=== PATIENT | female | born 1955 | race Caucasian/White ===

== ENCOUNTER 2018-05-31 06:05 | Observation (INO) | payer OTHER ==
--- NOTE | 2018-05-12 12:26 | GHP ---
DATE OF ADMISSION: 05/31/2018 PROBLEM: Right knee arthritis. HISTORY OF PRESENT ILLNESS: The patient is a 63-year-old woman admitted for a right total knee arthr oplasty. She has had progressive pain in her right knee over the last couple of years. She is now h aving daily pain. No prior surgery. She does Pilates and aqua aerobics. She occasionally uses ibup rofen. She has some night pain. She uses ice packs on her knee after exercising. She has been expe riencing episodes of the knee "locking up." She has also noticed a progressive knock-knee deformity in her knees. She has advanced lateral compartment degenerative arthritis of the right knee. She is admitted for a right total knee arthroplasty. PAST MEDICAL HISTORY: Overall, she is in good general health. She has elevated cholesterol, but can not tolerate statins. She takes medication for depression and for difficulty sleeping. No history o f heart disease, stents, DVT, hepatitis, MRSA staph infections, sleep apnea or bleeding problems. CURRENT MEDICATIONS: Lamotrigine 100 mg per day, lorazepam 0.5 mg p.r.n., eszopiclone 2 mg at bedtim e for sleep. DRUG ALLERGIES: Penicillin causes a rash. Metal allergy: None. Latex allergy: None. SOCIAL HISTORY: The patient is . She does not smoke cigarettes or drink alcohol. PHYSICAL EXAMINATION: VITAL SIGNS: Height 5 feet 8-1/2 inches. Weight 150 pounds. BMI 22.5. EYES : The conjunctivae and sclerae are clear. Pupils are round and reactive. MOUTH: Good oral hygiene . No loose teeth. CHEST: Clear. HEART: Regular rhythm. No murmurs. EXTREMITIES: Pertinent fin dings limited to her right knee. When standing, she has significant increased valgus in the right kn ee. She has no effusion. She lacks 5 degrees of full extension and flexes to 125 degrees. Her liga ments are stable. Her valgus deformity cannot be passively corrected to neutral. She has moderate p atellofemoral crepitation with active knee extension. Her legs are very thin. IMPRESSION ON ADMISSION: Right knee advanced lateral compartment degenerative arthritis with valgus deformity. PLAN: She will undergo a right total knee arthroplasty. The surgery has been described to her, incl uding the risks, complications, expectations, and recovery time. The importance of postoperative phy sical therapy has been stressed. I have advised her that a small percentage of people do not get a s atisfactory result with a total knee replacement. All her questions have been answered, and she cons ents to surgery. /[id number]/MODL
--- NOTE | 2018-05-30 19:01 | POSTANESTH ---
Post Anesthetic Evaluation Cardiovascular Status: Normal, Stable Respiratory Status: Normal, Stable Level of Consciousness/Mental Status: Can Participate in Eval, Mildly Sleepy, Arousable Pain Control: Adequate, Prn Tx Ordered Nausea/Vomiting Control: Adequate, Prn Tx Ordered Complications Possibly Related to Anesthesia: None Noted (Can move toes bilaterally, but no pain at this time due to residual spinal block.)
--- NOTE | 2018-05-30 19:04 | PDANEPAE ---
ANE History of Present Illness 63 yo female with OA for R TKA. ANE Past Medical History - Cardiovascular History Hx Hypertension: No Hx Arrhythmias: No Hx Chest Pain: No Hx Coronary Artery / Peripheral Vascular Disease: No Hx CHF / Valvular Disease: No Hx Palpitations: No - Pulmonary History Hx COPD: No Hx Asthma/Reactive Airway Disease: No Hx Recent Upper Respiratory Infection: No Hx Oxygen in Use at Home: No Hx Sleep Apnea: No Sleep Apnea Screening Result - Last Documented: Negative - Neurologic History Hx Cerebrovascular Accident: No Hx Seizures: No Hx Dementia: No - Endocrine History Hx Diabetes: No Hypothyroid: No Hyperthyroid: No Obesity: no - Renal History Hx Renal Disorders: No - Liver History Hx Hepatic Disorders: No - Neurological & Psychiatric Hx Hx Neurological and Psychiatric Disorders: Yes Neurological / Psychiatric History Comment: depression, insomnia, ADD - Cancer History Hx Cancer: No - Congenital Disorder History Hx Congenital Disorders: No - GI History GERD: no Hx Gastrointestinal Disorders: No - Other Health History Other Health History: OA - Chronic Pain History Chronic Pain: Yes (RT KNEE) - Surgical History Prior Surgeries: TUBAL LIGATION. ENDOMETRIAL ABLATION ANE Review of Systems Review of Systems: - Exercise capacity METS (RN): 4 METS - Systems Constitutional: Reports: no symptoms Cardiac: Reports: no symptoms Respiratory: Reports: no symptoms Muscolosketal: Reports: joint pain (B knee OA) ANE Patient History - Allergies Allergies/Adverse Reactions: Penicillins Allergy (Verified 05/26/18 16:42) Rash - Home Medications Home Medications: Adderall 7.5 mg Tablet PRN 05/26/18 [Last Taken Unknown] Ativan PRN 05/26/18 [Last Taken Unknown] Lamotrigine DAILY 05/26/18 [Last Taken 05/30/18 09:00] Seroquel HS 05/26/18 [Last Taken 05/30/18 21:00] - NPO status NPO Status: no food or drink >8 hours - Anes Hx Anes Hx: no prior problems - Smoking Hx Smoking Status: Never smoked - Alcohol Use Alcohol Use: None - Family Anes Hx Family Anes Hx: neg - N/A ANE Labs/Vital Signs - Vital Signs Vital Signs: reviewed preoperatively; see RN documention for details Height: 173.99 cm Weight: 67.24 kg ANE Physical Exam - Airway Neck exam: FROM Mallampati Score: Class 1 Mouth exam: normal dental/mouth exam - Pulmonary Pulmonary: clear to auscultation - Cardiovascular Cardiovascular: regular rate and rhythym - ASA Status ASA Status: II ANE Anesthesia Plan Anesthesia Plan: spinal Regional Anesthesia: continuous NB, adductor canal FNB, POPC/PSR
[~2018-05-31 06:05] MED LIST: ACETAMINOPHEN 325 MG TAB PO ONE; DEXAMETHASONE 4 MG/ML VIAL IVP ONE; FAMOTIDINE 20 MG TAB PO ONE; GABAPENTIN 300 MG CAP PO ONE; LIDOCAINE 1% 2 ML INJ ID PRN; LR 1,000 ML IV ONE; ONDANSETRON 4 MG/2 ML VIAL IVP ONE; POVIDONE-IODINE 20 ML in SODIUM CL IRRIG SOLUTION 500 ML IRR ONE; ROPIVACAINE 0.2% 80 MG, EPINEPHrine 0.2 MG, KETOROLAC TROMETHAMINE 30 MG in SYRINGE 0 ML IU ONE; TRANEXAMIC ACID 1,000 MG in NS 100 ML IV ONE; TRANEXAMIC ACID 3,000 MG in NS (SYRINGE) 50 ML IRR ONE; ceFAZolin 2 GM/DEXTROSE 100 ML IV ONE
[2018-05-31] MEDS ORDERED: VANCOMYCIN 1 GM VIAL ONE (06:30)
[2018-05-31] MEDS ORDERED: TRANEXAMIC ACID 3,000 MG/50 ML BAG IRR ONE (06:30)
[2018-05-31] MEDS ORDERED: ceFAZolin 1 GM/5 ML SYR ONE (06:31)
[2018-05-31] MEDS ORDERED: PROPOFOL/EMULSION 500 MG/50 ML BOTTLE IV ONE (06:55)
[2018-05-31] MEDS ORDERED: LIDOCAINE 2% 5 ML SDV ONE (06:55)
[2018-05-31] MEDS ORDERED: fentaNYL 100 MCG/2 ML INJ ONE (06:55)
--- NOTE | 2018-05-31 07:00 | PDHPUP ---
History & Physical Update H&P update statement: This history and physical update is based on an assessment of the patient which was completed after admission or registration (within 24 hours), but prior to the surgery/procedure. H&P update: H&P reviewed & patient examined
[2018-05-31] MEDS ORDERED: ceFAZolin 2 GM/DEXTROSE 100 ML IV ONE (07:15)
[2018-05-31] MEDS ORDERED: ePHEDrine SULFATE 25 MG/5 ML SYR ONE (07:47)
[2018-05-31] MEDS ORDERED: PROPOFOL 200 MG/20 ML VIAL ONE ×2 (07:59→08:35)
[2018-05-31] MEDS ORDERED: ROPIVACAINE HCL 150 MG/30 ML INJ ONE (08:38)
--- NOTE | 2018-05-31 09:02 | POSTOPPROG ---
Post Op Note Date of Operation: 05/31/18 Surgeon: Francesco Quinn Office Administration: Nemo Anesthesiologist: Emeka Anesthesia: IV Sedation, Spinal Post-op Diagnosis: Right knee severe degenerative arthritis with valgus deformity. Procedure: Right total knee arthroplasty Inf/Abcess present in the surg proc area at time of surgery?: No EBL: 50-100 (Adductor canal block with indwelling catheter in PACU)
[2018-05-31] MEDS ORDERED: NALOXONE HCL 0.4 MG/ML INJ IVP PRN (09:07)
[2018-05-31] MEDS ORDERED: PROMETHAZINE HCL 25 MG/ML INJ IVP PRN ×2 (09:07→09:15)
[2018-05-31] MEDS ORDERED: LR 500 ML IV PRN (09:07)
[2018-05-31] MEDS ORDERED: oxyCODONE IR 5 MG TAB PO PRN ×2 (09:07→09:15)
[2018-05-31] MEDS ORDERED: fentaNYL 100 MCG/2 ML INJ IVP PRN (09:07)
[2018-05-31] MEDS ORDERED: DIAZEPAM 5 MG/ML 1 ML SYR IVP PRN (09:07)
[2018-05-31] MEDS ORDERED: ALBUTEROL 3 ML DEYVIAL IH PRN (09:07)
[2018-05-31] MEDS ORDERED: TEMAZEPAM 15 MG CAP PO PRN (09:15)
[2018-05-31] MEDS ORDERED: LACTULOSE 20 GM/30 ML UDCUP PO PRN (09:15)
[2018-05-31] MEDS ORDERED: CYCLOBENZAPRINE 10 MG TAB PO PRN (09:15)
[2018-05-31] MEDS ORDERED: POLYETHYLENE GLYCOL 3350 17 GM PKT PO PRN (09:15)
[2018-05-31] MEDS ORDERED: PROMETHAZINE HCL 25 MG SUPPR PR PRN (09:15)
[2018-05-31] MEDS ORDERED: MAGNESIUM HYDROXIDE 30 ML UDCUP PO PRN (09:15)
[2018-05-31] MEDS ORDERED: DIPHENOXYLATE/ATROPINE LOMOTIL 1 TAB PO PRN (09:15)
[2018-05-31] MEDS ORDERED: diphenhydrAMINE 25 MG CAP PO PRN (09:15)
[2018-05-31] MEDS ORDERED: ONDANSETRON DISINTEGRATING 4 MG TAB PO PRN (09:15)
[2018-05-31] MEDS ORDERED: NS 500 ML IV PRN (09:15)
[2018-05-31] MEDS ORDERED: ONDANSETRON 4 MG/2 ML VIAL IVP PRN (09:15)
[2018-05-31] MEDS ORDERED: BISACODYL 10 MG SUPP PR PRN (09:15)
[2018-05-31] MEDS ORDERED: LR 1,000 ML IV SCH (09:30)
--- NOTE | 2018-05-31 09:41 | GOP ---
DATE OF OPERATION: 05/31/2018 SURGEON: Francesco Quinn MD LICENSE EXAMINER: Noe Monet CFA and Donn Chaparro PA-C. ANESTHESIA: Combination of Marcaine, spinal, IV sedation, and adductor canal block. ANESTHESIOLOGIST: Lacey Ramey MD. PREOPERATIVE DIAGNOSIS: Right knee severe degenerative arthritis with valgus deformity. POSTOPERATIVE DIAGNOSIS: Right knee severe degenerative arthritis with valgus deformity. PROCEDURE PERFORMED: Right total knee arthroplasty cemented, Pereira and Nephew Journey II, posterior stabilized. FINDINGS: DESCRIPTION OF PROCEDURE: The patient was given 2 g of IV Ancef preoperatively within 60 minutes of surgery. She also received 1000 mg of IV tranexamic acid preoperatively. She was placed on the oper ating room table and given spinal anesthesia with Marcaine by Dr. Ramey. She was then placed supin e and given IV sedation. A Faye catheter was not used. A JANETTE stocking and SCD were applied to the nonoperative leg. Her right lower extremity was prepped with ChloraPrep from the upper thigh tourniq uet to the tips of the toes. It was draped free using sterile sheets, stockinette, and Ioban plastic adhesive drape. The lower leg was wrapped with compressive Coban. The leg was exsanguinated with e levation and a 6-inch compressive wrap, and the tourniquet was inflated to 250 mmHg. The World Health Organization time-out was performed to verify the correct patient identity and the c orrect surgical side and site. The [employer] time-out was also performed. The [employer] leg holding device was sterilely attached to the operating room table and used throughout the procedure to help position the knee. A straight midline incision was made centered on the patell a. Subcutaneous tissues were sharply divided, and hemostasis was obtained using electrocautery. A m edial subcutaneous flap was developed, and the capsule and synovium were opened in a medial parapatel lar fashion. Extensive degenerative changes were present in the lateral compartment and in the cuellar lofemoral joint. She had a deep erosion on the posterior aspect of her lateral tibial plateau. The medial capsule and periosteum were elevated off the rim of the medial tibial plateau all the way arou nd to the posteromedial corner. Because she had a valgus deformity, her medial collateral ligament w as not significantly released. In order to improve exposure, the patella was prepared first. The original thickness of the patella was measured. Peripheral osteophytes were removed. I cut a flat surface on the back of the patella. She was sized for a 35 mm round resurfacing component. I removed enough bone from the patella such that the remaining bone plus the thickness of the patellar component recreated the original thicknes s of the patella. The composite thickness was 23 mm. The intramedullary alignment guide system was used to set up the distal femoral cut. The distal femu r was cut in 5 degrees of valgus. Because I was using the posterior stabilized femoral component and because of her slightly deficient lateral femoral condyle, I made a +2 mm cut on the distal femur. The sizing jig was used to determine proper femoral sizing. She was a true size 5 without a shift. The 5-in-1 cutting block was applied, and the anterior and posterior condylar cuts and chamfer cuts w ere made. The final jig was used to remove the central portion of the distal femur to accommodate th e posterior stabilized femoral component. I was careful to determine proper rotation by referencing off Whitesides line and other bony landmarks. Each cut was checked for accuracy. The size 5 femur p osterior stabilized component was tapped securely into place and was a good fit. Next, the tibia was prepared. The proximal tibial cut was made using the extramedullary alignment gu jose j system. The cut was made in a few degrees of posterior slope. I made the cuts such that it was the most minimal amount on the lateral side where she had the erosion on the lateral tibial plateau. I was careful to achieve proper varus valgus alignment and proper rotation. The posterior compartme nt was cleared of meniscal remnants. Osteophytes were removed from the back of her femoral condyles. I checked her flexion and extension gaps. Because of a significant preoperative valgus alignment s he was tight laterally. I released the IT band off the lateral edge of the tibial plateau. I also r eleased the fibular collateral ligament and the popliteus off the lateral femoral condyle. I then up sized from a 10 mm tibial insert to an 11 mm insert. At this point, the flexion and extension gaps w ere equal and rectangular. The tibia was sized for a size 4 component. With the trial components in place, I selected an 11 mm polyethylene posterior stabilized tibial insert. The knee came to full e xtension and flexed to 130 degrees. Her collateral ligaments were stable and balanced in 90 degrees of flexion and full extension. The trial patellar button was applied, and tracking was checked. She had excellent tracking without any digital pressure. 40 cc of the joint anesthetic cocktail were injected into the posterior capsule, the quadriceps muscl e and tendon areas, and the subcutaneous tissues along the skin edges. The surfaces were prepared for cementing. They were carefully cleaned with the pulsating lavage irri gation and thoroughly dried. The CarboJet device was used to blow dry the cancellous surfaces. A do uble batch of high viscosity methylmethacrylate cement with 2 g of powdered vancomycin added was mixe d. While it was still in a doughy state all [address] components were cemented in place. Excess cement was removed before it hardened. The 11 mm tibial insert was re-tried and was the proper thickness. The actual component was inserted and locked into place. The knee was thoroughly irrigated 1 final time with a dilute Betadine soluti on. The tourniquet was deflated and total tourniquet time was 59 minutes. 50 cc of tranexamic acid solut ion was irrigated into the wound and left in place for several minutes. The vastus medialis portion of the extensor mechanism was repaired with several interrupted figure-of -eight #2 FiberWire sutures. The capsule and synovium were closed first with multiple interrupted fi [id number] 0 PDS sutures, followed by a running. barbed Ethicon Stratafix PDO suture. The subcuta neous tissues were closed with a running 0 barbed Ethicon Stratafix Monoderm suture. The skin was cl osed with a running 3-0 barbed Ethicon Stratafix Monoderm subcuticular suture. The skin was sealed w ith half-inch Steri-Strips. The wound was covered with a large Mepilex waterproof dressing and the k nee was wrapped with Kerlix and a 6-inch compressive wrap. A long-leg JANETTE stocking and SCD were appl ied, followed by the cooling device. She wore a stocking and SCD on the opposite leg during the proc edure. The sacral Mepilex dressing was applied. I used a size 5 Pereira and Nephew cemented Oxinium posterior stabilized femoral component, size 4 ceme nted tibial base plate, an 11 mm posterior stabilized tibial insert and a 35 mm cemented round all-po lyethylene resurfacing patellar component. Estimated blood loss following inflation of tourniquet was about 100 cc. The sponge and needle count were correct on 2 occasions. She was awakened from anesthesia, [facility] and taken to PACU in satisfactor y condition. There were no recognized intraoperative complications. In the PACU, for additional pos toperative pain control, Dr. Ramey performed an adductor canal block with an indwelling catheter. Noe Monet and De Chaparro acted as surgical assistants. Their assistance was a medical necess ity for safe completion of the procedure. /[id number]/MODL
[2018-05-31] MEDS ORDERED: LORazepam 0.5 MG TAB PO PRN (10:58)
[2018-05-31] MEDS ORDERED: ADDERALL 10 MG TAB PO PRN (10:58)
[2018-05-31] MEDS ORDERED: ZOLPIDEM TARTRATE 5 MG TAB PO PRN (11:04)
[2018-05-31] MEDS: ACETAMINOPHEN 325 MG TAB PO SCH ×3 (12:15→23:39)
[2018-05-31] MEDS: KETOROLAC 15 MG/1 ML SDV IVP SCH ×3 (12:17→23:37)
[2018-05-31] MEDS: traMADol 50 MG TAB PO PRN ×2 (12:20→21:16)
[2018-05-31] MEDS: ceFAZolin 2 GM/DEXTROSE 100 ML IV SCH ×2 (15:19→22:53)
[2018-05-31] MEDS ORDERED: QUEtiapine FUMARATE 50 MG TAB PO SCH (21:00)
[2018-05-31] MEDS: ASPIRIN 325 MG TAB PO SCH (21:12)
[2018-05-31] MEDS: SENNOSIDES/DOCUSATE SODIUM TAB PO SCH (21:13)
[2018-05-31] MEDS: FAMOTIDINE 20 MG TAB PO SCH (21:13)
[2018-06-01] MEDS: ACETAMINOPHEN 325 MG TAB PO SCH (05:19)
[2018-06-01] MEDS: KETOROLAC 15 MG/1 ML SDV IVP SCH (05:20)
[2018-06-01] MEDS ORDERED: ROPIVACAINE HCL 150 MG/30 ML INJ ONE (07:18)
--- NOTE | 2018-06-01 07:39 | SOAPPROG ---
SOAP Progress Note Assessment/Plan: Assessment: Afebrile. Awake and alert. Very little pain so far. She was a little lightheaded when she stood up yesterday. Last night and this morning she has been walking around the room. Postop H&H is good. Postop films look excellent. Plan: Continue physical therapy today for ambulation and stairs. Standing long alignment film. Discharge later today. 06/01/18 07:39 Objective: Vital Signs Temp Pulse Resp BP Pulse Ox 36.4 C 62 14 116/91 H 96 06/01/18 05:24 06/01/18 05:24 06/01/18 05:24 06/01/18 05:24 06/01/18 05:24 Laboratory Results 06/01/18 05:04 05/31/18 06/01/18 06/02/18 05:59 05:59 05:59 Intake Total 2200 Output Total 1550 200 Balance 650 -200 ICD10 Worksheet Patient Problems: Problems Problem Status Onset Osteoarthritis of right knee Acute
--- NOTE | 2018-06-01 07:56 | GDS ---
ADMISSION DIAGNOSIS: Right knee, severe degenerative arthritis. DISCHARGE DIAGNOSIS: Right knee, severe degenerative arthritis. OPERATION PERFORMED: 06/19/2018, a right total knee arthroplasty. POSTOPERATIVE COMPLICATIONS: None. CONDITION ON DISCHARGE: Improved. DESCRIPTION OF HOSPITAL COURSE: The patient was admitted to the hospital on the morning of surgery. Her admission CBC was normal. The same day, under a combination of Marcaine, spinal, IV sedation, a nd adductor canal block, she underwent a right total knee arthroplasty. Postoperatively, she was pravin ated with multimodal DVT prophylaxis, including aspirin. On the first postoperative day, her hemoglo bin and hematocrit were 11.8 and 34.1. She was seen by Physical Therapy and made good progress with ambulation and the stairs. By the time of discharge, she was afebrile, and she was independent and w alking with a walker. DISPOSITION: She is discharged to her home. She will go to outpatient physical therapy in [place] next week. She may progress to full weightbearing on the right, as tolerated. Continue aspirin 325 mg p.o. daily for 21 days. She has prescriptions for Celebrex, oxycodone and tramadol for pain contr ol. Continue JANETTE stockings for 1 week. I will see her back in the office on 06/12/2017. If any pro blems, she is to call me at the office. She does not have a primary care doctor. /[id number]/MODL
[2018-06-01] MEDS ORDERED: FERROUS SULFATE 325 MG TAB PO SCH (08:00)
[2018-06-01] MEDS ORDERED: LIPID EMULSION 20% 100 ML IV PRN (08:18)
--- NOTE | 2018-06-01 08:21 | PDPAINCON ---
Pain Management Consultation Patient referred by : Cheyenne - Subjective Pain is: no pain at all Side effects include: No drowsy, No itchiness, No rash Activity: able to ambulate, participating in PT - Objective Technique: continuous peripheral nerve block Continuous infusion: ropivicaine (0.2%) Catheter site: clean, dry, intact, no erythema/edema/exudate Sensory and motor exam: consistent with block - Assessment/Plan Assessment/Plan: pain well-controlled, continue current mgmt Additional comments: POD 1 s/p TKA with AC catheter in place. Re-dosed with ropivacaine 0.5% 20ml and catheter removed without complication. D/c home today.
[2018-06-01] MEDS: ASPIRIN 325 MG TAB PO SCH (08:32)
[2018-06-01] MEDS: FAMOTIDINE 20 MG TAB PO SCH (08:32)
[2018-06-01] MEDS: SENNOSIDES/DOCUSATE SODIUM TAB PO SCH (08:33)
[2018-06-01 08:51] VITALS: BP 117/75
[2018-06-01] MEDS ORDERED: lamoTRIgine 100 MG TAB PO SCH (09:00)
--- NOTE | 2018-06-01 15:54 | ASDISCHSUM ---
Discharge Information Plan Status:Home with No Needs Medically Cleared to Leave:05/31/2018 Discharge Date:06/01/2018 10:34 AM CM D/C Disposition:Home, Routine, Self-Care ADT D/C Disposition:Home, Routine, Self-Care Projected Discharge Date:06/01/2018 12:00 AM Transportation at D/C:Family Discharge Delay Reason: Follow-Up Date:06/01/2018 12:00 AM Discharge Slot: Final Diagnosis: Placement Information Patient Contact Information Contact Name:CECIL Relationship: Address:[address] [place] Work Phone: City:[facility] Phone: [facility]/Zip Code:[place] [address] Email: Financial Information Financial Class:HMO and PPO Plans Primary Plan Desc:TRISH Primary Plan Number:[id number] Secondary Plan Desc: Secondary Plan Number: Assessment Information LACE LACE Length of stay for Answers: 1 day current admission Comorbidities - select Answers: Opioid dependence all that apply / Chronic pain # of Emergency department Answers: 0 visits in the last 6 months Social determinants Answers: Mental health diagnosis (anxiety, depression, pers onality disorders, etc.) Score: 8 Date Signed: 06/01/2018 03:52 PM Electronically Signed By:SANJAY Saravia Case Management Discharge Plan Note Case Management Discharge Discharge Order Complete? Answers: Yes Patient to Obtain Answers: via Family Medications Transportation Arranged Answers: Family/Friends EMTALA Complete Answers: No Discharge Comments Notes: Pt discharged independently. No CM needs identified. Family to transport. Date Signed: 06/01/2018 03:52 PM Electronically Signed By:SANJAY Saravia Intervention Information
== END 2018-06-01 10:34 | disposition home or self-care (01) ==
LOC: F3N 06:05
PROVIDERS: ADMIT Orthopaedic Surgery; ATTEND Orthopaedic Surgery
PROC: 0SRC0J9 Replacement of Right Knee Joint with Synthetic Substitute, Cemented, Open Approach (ICD-10-PCS; principal; 2018-05-31 07:15)
DX: M17.11 Unilateral primary osteoarthritis, right knee (principal); M21.061 Valgus deformity, not elsewhere classified, right knee; E78.5 Hyperlipidemia, unspecified; F32.9 Major depressive disorder, single episode, unspecified; Z88.0 Allergy status to penicillin
CPT/HCPCS: 27447; 73560; 77073; 97110; 97116; 97161; 97165; G0378; C1713; J0171; J0690; J1100; J1885; J2405; J2704; J2795; J3010; J3370

== ENCOUNTER → 2018-07-11 | Outpatient (CLI) | payer OTHER | LOC: CIMAGING 08:33 | DX: Z12.31 Encounter for screening mammogram for malignant neoplasm of breast (principal) ==

== ENCOUNTER → 2018-09-21 | Outpatient (CLI) | payer OTHER | LOC: EMCIMAGING 08:49 | DX: Z13.820 Encounter for screening for osteoporosis (principal); M85.89 Other specified disorders of bone density and structure, multiple sites; Z78.0 Asymptomatic menopausal state | CPT/HCPCS: 77080-PN ==